=== PATIENT | male | born 1985 | race Caucasian/White ===

== ENCOUNTER 2020-07-12 19:51 | Emergency (ER) | payer MEDICAID ==
[~2020-07-12] VITALS: Ht 177.8 cm; Wt 72.6 kg
[2020-07-12 19:55] VITALS: BP 140/90
--- NOTE | 2020-07-12 19:55 | NUR ---
TO TENT AMBULATORY
[2020-07-12] MEDS ORDERED: ONDANSETRON 4 MG ODT PO ONE (21:20)
--- NOTE | 2020-07-12 21:20 | NUR ---
SENT AND EXAMINED BY ERMD WITH ORDERS AND CARRIED OUT.
--- NOTE | 2020-07-12 22:15 | NUR ---
MEDICATED PER ERMDS ORDER, TOLERATED WELL.
--- NOTE | 2020-07-12 22:20 | NUR ---
SWAB DONE AND SENT TO LAB
--- NOTE | 2020-07-13 00:30 | NUR ---
ALL RESULTS BACK AAND NOTED BY ERMD AND FOR D/C
[2020-07-13 00:40] VITALS: BP 129/82
--- NOTE | 2020-07-13 00:40 | NUR ---
Patient discharged with v/s stable. Written and verbal after care instructions given and explained. Patient alert, oriented and verbalized understanding of instructions. Ambulatory with steady gait. All questions addressed prior to discharge. ID band removed. Patient advised to follow up with PMD. Rx of MECHE CHEEK given. Patient educated on indication of medication including possible reaction and side effects. Opportunity to ask questions provided and answered.
== END 2020-07-13 00:40 | disposition home or self-care (01) ==
LOC: MED 19:51
DX: A09 Infectious gastroenteritis and colitis, unspecified (principal); Z20.828 Contact with and (suspected) exposure to other viral communicable diseases; R50.9 Fever, unspecified
CPT/HCPCS: 81002; 82272; 87045; 87070; 87426; 87427; 89055; 99283; Q0162

== ENCOUNTER 2021-03-10 06:08 | Emergency (ER) | payer MEDICAID ==
[~2021-03-10] VITALS: Ht 177.8 cm; Wt 72.6 kg
[2021-03-10 06:30] VITALS: BP 137/85
--- NOTE | 2021-03-10 06:30 | NUR ---
TO BED AMBULATORY
--- NOTE | 2021-03-10 07:10 | NUR ---
35 YO/M BIB SELF W C/O PENILE PAIN, SLIGHT REDNESS, AND SLIGHT SWELLING TO X10 DAYS. PATIENT DENIES ANY DISCHARGE OR URINARY PROBLEMS, NO DYSURIA, FREQUENCY, RETENTION. DENIES FEVER. DENIES TRAUMA/INJURY. PATIENT SITTING IN BED LOCKED IN LOWEST POSITION, X1 SIDERAIL UP BREATHING EVEN AND UNLABORED. NAD NOTED, WILL CONTINUE TO MONITOR. PMH:DENIES NKA
[2021-03-10 07:34] VITALS: BP 137/85
--- NOTE | 2021-03-10 07:34 | NUR ---
Patient discharged with v/s stable. Written and verbal after care instructions given and explained. Patient verbalized understanding. Ambulatory with steady gait. All questions addressed prior to discharge. Advised to follow up with PMD.
== END 2021-03-10 07:34 | disposition home or self-care (01) ==
LOC: MED 06:08
DX: N48.29 Other inflammatory disorders of penis (principal); Z11.3 Encounter for screening for infections with a predominantly sexual mode of transmission
CPT/HCPCS: 36415; 81002; 87491; 99283

== ENCOUNTER 2021-05-08 03:32 | Emergency (ER) | payer MEDICAID ==
[~2021-05-08] VITALS: Ht 177.8 cm; Wt 70.3 kg
--- NOTE | 2021-05-08 03:50 | NUR ---
TO BED 2 FROM TRIAGE WITH C/O SORE THROAT AND RUNNY NOSE. PT STATES "I WANT TO BE TESTED FOR COVID" IS FULLY VACCINATED. THROAT PINK, RESPIRATIONS REGULAR AND UNLABORED
--- NOTE | 2021-05-08 04:40 | NUR ---
Patient discharged with v/s stable. Written and verbal after care instructions given and explained. Patient verbalized understanding. ID BAND REMOVED Ambulatory with steady gait. All questions addressed prior to discharge. Advised to follow up with PMD.
== END 2021-05-08 04:40 | disposition home or self-care (01) ==
LOC: MED 03:32
DX: J06.9 Acute upper respiratory infection, unspecified (principal); Z20.822 Contact with and (suspected) exposure to COVID-19
CPT/HCPCS: 87081; 87804; 99283